=== PATIENT | female | born 1990 | race Caucasian/White ===

== ENCOUNTER 2018-02-17 14:24 | Outpatient (CLI) | payer OTHER ==
[~2018-02-17] VITALS: Ht 170.2 cm; Wt 90.0 kg
[2018-02-17 14:39] VITALS: BP 124/76
[2018-02-17 15:08] LABS: MICROSCOPIC INDICATED
[2018-02-17 15:13] LABS: BASOPHILS # (AUTO) 0.08 x10^3/uL (0-0.1); BASOPHILS % (AUTO) 1 % (0-1); EOSINOPHILS # (AUTO) 0.04 x10^3/uL (0-0.4); EOSINOPHILS % (AUTO) 1 % (1-7); LYMPHOCYTES % (AUTO) 31 % (22-44); MD NO; MEAN CORPUSCULAR HGB CONC 34.3 g/dL (32.4-35.8); MEAN CORPUSCULAR VOLUME 93.3 fL (80-100); MEAN PLATELET VOLUME 9.7 fL (7.4-10.4); MONOCYTES # (AUTO) 0.56 x10^3/uL (0.2-0.8); MONOCYTES % (AUTO) 7 % (2-9); NEUTROPHILS % (AUTO) 61 % (42-75); PLATELET COUNT 153 x10^3/uL (130-400); RED BLOOD COUNT 3.78 x10^6/uL (3.82-5.3)
[2018-02-17 15:14] LABS: PROTEIN/CREATININE RATIO,URINE < 191 (0-200); TOTAL PROTEIN,URINE RANDOM < 5 mg/dL (0-12)
[2018-02-17 15:19] LABS: ALANINE AMINOTRANSFERASE 15 U/L (12-78); ALBUMIN 2.7 g/dL (3.4-5.0); ANION GAP 12 mmol/L (5-15); CALCIUM 8.6 mg/dL (8.5-10.1); CHLORIDE 109 mmol/L (98-107); CREATININE 0.73 mg/dL (0.55-1.02)
[2018-02-17 15:22] LABS: ALKALINE PHOSPHATASE 125 U/L (45-117); BILIRUBIN,TOTAL 0.3 mg/dL (0.2-1.0); TOTAL PROTEIN 6.8 g/dL (6.4-8.2)
[2018-02-17 15:23] LABS: BILIRUBIN, DIRECT < 0.1 mg/dL (0.1-0.2)
== END 2018-02-17 16:45 | disposition home or self-care (01) ==
LOC: LDOP 14:24
PROVIDERS: ATTEND Obstetrics & Gynecology
DX: O13.3 Gestational [pregnancy-induced] hypertension without significant proteinuria, third trimester (principal); Z3A.39 39 weeks gestation of pregnancy
CPT/HCPCS: 36415; 59025; 80053; 81001; 82248; 82570; 84156; 84550; 85025; 99201; G0463

== ENCOUNTER 2018-02-21 03:42 | Inpatient (IN) | payer OTHER ==
[~2018-02-21] VITALS: Ht 170.2 cm; Wt 89.0 kg
[2018-02-21] MEDS ORDERED: LACTATED RINGERS 1,000 ML IV SCH ×3 (04:13→06:28)
[2018-02-21] MEDS ORDERED: OXYTOCIN 30U/ 0.9% NaCL 500ML 500 ML IV ONE (04:13)
[2018-02-21] MEDS ORDERED: D5%-LACTATED RINGERS 1,000 ML IV SCH (04:13)
[2018-02-21] MEDS ORDERED: PENICILLIN GK 2,500,000 UNITS in DEXTROSE 5% 100 ML IVPB SCH (04:30)
[2018-02-21] MEDS ORDERED: PENICILLIN GK 5,000,000 UNITS in SODIUM CHLORIDE 0.9% 100 ML IVPB ONE (04:30)
[2018-02-21] MEDS ORDERED: FENTANYL PF 100 MCG/2ML IV PRN (04:30)
[2018-02-21] MEDS ORDERED: ONDANSETRON 2MG/ML, 2ML IVPush PRN (04:30)
[2018-02-21] MEDS ORDERED: CALCIUM CARBONATE 500 MG TAB.CHEW PO PRN (04:30)
[2018-02-21] MEDS ORDERED: MISOPROSTOL 200 MCG TABLET ONE (04:39)
[2018-02-21] MEDS ORDERED: LIDOCAINE/PF 1%, 30ML ONE (04:39)
[2018-02-21] MEDS ORDERED: OXYTOCIN 30U/ 0.9% NaCL 500ML 500 ML ONE (04:39)
[2018-02-21] MEDS ORDERED: NEWBORN KIT ONE (04:39)
[2018-02-21] MEDS ORDERED: FENTANYL PF 100 MCG/2ML ONE ×2 (04:39→05:47)
[2018-02-21] MEDS ORDERED: FENTANYL/BUPIV./NS/PF 250 ML EPIDCONT SCH ×2 (04:41→06:28)
[2018-02-21] MEDS: FENTANYL PF 100 MCG/2ML IVPush PRN ×2 (04:50→05:51)
[2018-02-21] MEDS ORDERED: DIPHENHYDRAMINE 50 MG/ML, 1ML IVPush PRN (05:00)
[2018-02-21] MEDS ORDERED: LACTATED RINGERS 1,000 ML IVBOLUS PRN ×2 (05:00→06:30)
[2018-02-21] MEDS ORDERED: EPHEDRINE 50 MG/ML, 1ML IVPush PRN ×2 (05:00→06:30)
[2018-02-21 05:27] VITALS: BP 138/83
[2018-02-21 05:31] LABS: BASOPHILS # (AUTO) 0.03 x10^3/uL (0-0.1); BASOPHILS % (AUTO) 0 % (0-1); EOSINOPHILS # (AUTO) 0.02 x10^3/uL (0-0.4); EOSINOPHILS % (AUTO) 0 % (1-7); LYMPHOCYTES # (AUTO) 2.81 x10^3/uL (1-3.4); LYMPHOCYTES % (AUTO) 20 % (22-44); MD NO; MEAN CORPUSCULAR HEMOGLOBIN 32.4 pg (27.0-34.8); MEAN CORPUSCULAR HGB CONC 34.9 g/dL (32.4-35.8); MEAN CORPUSCULAR VOLUME 92.8 fL (80-100); MONOCYTES # (AUTO) 0.64 x10^3/uL (0.2-0.8); MONOCYTES % (AUTO) 5 % (2-9); NEUTROPHILS # (AUTO) 10.26 x10^3/uL (1.8-6.8); NEUTROPHILS % (AUTO) 75 % (42-75); PLATELET COUNT 154 x10^3/uL (130-400); RED BLOOD COUNT 3.88 x10^6/uL (3.82-5.3); RED CELL DISTRIBUTION WIDTH 13.2 % (9.6-15.2)
[2018-02-21 05:34] LABS: MICROSCOPIC INDICATED
[2018-02-21 05:43] LABS: ALANINE AMINOTRANSFERASE 14 U/L (12-78); ALBUMIN 2.7 g/dL (3.4-5.0); ANION GAP 16 mmol/L (5-15); CALCIUM 8.7 mg/dL (8.5-10.1); CHLORIDE 107 mmol/L (98-107)
[2018-02-21 05:44] LABS: ALKALINE PHOSPHATASE 136 U/L (45-117); BILIRUBIN,TOTAL 0.2 mg/dL (0.2-1.0); CREATININE 0.79 mg/dL (0.55-1.02)
[2018-02-21 05:48] LABS: BILIRUBIN, DIRECT < 0.1 mg/dL (0.1-0.2)
[2018-02-21] MEDS ORDERED: BUPIVACAINE 0.25% ONE (06:04)
[2018-02-21] MEDS ORDERED: OXYTOCIN 30U/ 0.9% NaCL 500ML 500 ML IV PRN (08:03)
[2018-02-21] MEDS ORDERED: OXYTOCIN 30U/ 0.9% NaCL 500ML 500 ML IV SCH (09:29)
[2018-02-21] MEDS ORDERED: MISOPROSTOL 200 MCG TABLET PR PRN (09:30)
[2018-02-21] MEDS ORDERED: ONDANSETRON 2MG/ML, 2ML IV PRN (09:30)
[2018-02-21] MEDS ORDERED: DOCUSATE 100 MG CAPSULE PO PRN (09:30)
[2018-02-21] MEDS ORDERED: METHYLERGONOVINE 0.2 MG/ML IM PRN ×2 (09:30→10:00)
[2018-02-21] MEDS ORDERED: IBUPROFEN 600 MG TABLET PO PRN (09:30)
[2018-02-21] MEDS ORDERED: OXYcodone/APAP 5/325MG TABLET PO PRN ×4 (09:30→10:00)
[2018-02-21] MEDS: OXYTOCIN 30U/ 0.9% NaCL 500ML 500 ML IV SCH ×2 (09:36→19:36)
[2018-02-21 11:00] VITALS: BP 116/78
[2018-02-21] MEDS: IBUPROFEN 600 MG TABLET PO PRN ×2 (12:07→19:20)
[2018-02-21 15:30] VITALS: BP 103/67
[2018-02-21 17:31] LABS: BASOPHILS # (AUTO) 0.11 x10^3/uL (0-0.1); BASOPHILS % (AUTO) 1 % (0-1); EOSINOPHILS # (AUTO) 0.02 x10^3/uL (0-0.4); EOSINOPHILS % (AUTO) 0 % (1-7); LYMPHOCYTES % (AUTO) 20 % (22-44); MD NO; MEAN CORPUSCULAR HEMOGLOBIN 32.8 pg (27.0-34.8); MEAN CORPUSCULAR HGB CONC 34.7 g/dL (32.4-35.8); MEAN CORPUSCULAR VOLUME 94.7 fL (80-100); MEAN PLATELET VOLUME 9.9 fL (7.4-10.4); MONOCYTES # (AUTO) 0.68 x10^3/uL (0.2-0.8); MONOCYTES % (AUTO) 5 % (2-9); NEUTROPHILS # (AUTO) 9.49 x10^3/uL (1.8-6.8); NEUTROPHILS % (AUTO) 74 % (42-75); PLATELET COUNT 150 x10^3/uL (130-400); RED BLOOD COUNT 3.12 x10^6/uL (3.82-5.3); RED CELL DISTRIBUTION WIDTH 13.1 % (9.6-15.2)
[2018-02-21] MEDS: DOCUSATE 100 MG CAPSULE PO PRN (19:20)
[2018-02-21 21:00] VITALS: BP 107/58
[2018-02-22 00:30] VITALS: BP 110/72
[2018-02-22 03:35] VITALS: BP 102/68
[2018-02-22] MEDS: IBUPROFEN 600 MG TABLET PO PRN ×2 (04:30→10:19)
[2018-02-22] MEDS: OXYTOCIN 30U/ 0.9% NaCL 500ML 500 ML IV SCH (05:36)
[2018-02-22 08:10] VITALS: BP 121/76
[2018-02-22] MEDS ORDERED: PRENATAL VIT/IRON/FA 1 EACH TABLET PO SCH ×2 (09:00)
[2018-02-22] MEDS: DOCUSATE 100 MG CAPSULE PO PRN (10:19)
[2018-02-22] MEDS ORDERED: IBUP-1222 PO (11:38)
== END 2018-02-22 14:20 | disposition home or self-care (01) | DRG 807 ==
LOC: LDIP 03:42 → 2NW 10:31
PROVIDERS: ADMIT Obstetrics & Gynecology; ATTEND Obstetrics & Gynecology
PROC: 10E0XZZ Delivery of Products of Conception, External Approach (ICD-10-PCS; principal; 2018-02-21)
PROC: 0KQM0ZZ Repair Perineum Muscle, Open Approach (ICD-10-PCS; 2018-02-21)
PROC: 3E0R3BZ Introduction of Anesthetic Agent into Spinal Canal, Percutaneous Approach (ICD-10-PCS; 2018-02-21)
PROC: 00HU33Z Insertion of Infusion Device into Spinal Canal, Percutaneous Approach (ICD-10-PCS; 2018-02-21)
PROC: 10907ZC Drainage of Amniotic Fluid, Therapeutic from Products of Conception, Via Natural or Artificial Opening (ICD-10-PCS; 2018-02-21)
DX: O99.824 Streptococcus B carrier state complicating childbirth (principal); Z37.0 Single live birth; O70.1 Second degree perineal laceration during delivery; Z3A.39 39 weeks gestation of pregnancy
CPT/HCPCS: 36415; 80053; 81001; 82248; 82570; 84156; 84550; 85025; 86850; 86900; G0378; J2540; J3010; J2590; J7120